=== PATIENT | male | born 1955 | race African-American/Black ===

== ENCOUNTER 2018-02-27 14:10 | Emergency (ER) | payer SELFPAY ==
[~2018-02-27] VITALS: Ht 177.8 cm; Wt 85.0 kg
[2018-02-27] MEDS ORDERED: TAMS-11 PO (14:16)
[2018-02-27 16:28] LABS: BASOPHILS % 0.3 % (0.0-2.0); EOSINOPHILS % 1.1 % (0.0-5.0); HEMATOCRIT. 38.5 % (42.0-52.0); HEMOGLOBIN. 12.5 g/dL (14.0-18.0); LYMPHOCYTES % 20.6 % (20.0-50.0); MEAN CORPUSCULAR HEMOGLOBIN 22.8 pg (28.0-32.0); MEAN CORPUSCULAR VOLUME 70.2 fL (80.0-94.0); MEAN PLATELET VOLUME 8.1 fl (7.4-10.4); MONOCYTES % 6.2 % (2.0-8.0); NEUTROPHILS % 71.8 % (40.0-76.0); PLATELET 272 x1000/uL (130-400); RED BLOOD CELL COUNT 5.49 mill/uL (4.7-6.1); RED CELL DISTRIBUTION WIDTH 17.4 % (11.6-14.6)
[2018-02-27 16:32] LABS: CHLORIDE 105 mEq/L (98-107)
[2018-02-27 16:33] LABS: INR 1.1; PROTHROMBIN TIME 10.6 sec (9.1-11.1)
[2018-02-27 17:50] VITALS: BP 128/77
== END 2018-02-27 17:50 | disposition home or self-care (01) ==
LOC: ER 14:27
DX: R55 Syncope and collapse (principal)
CPT/HCPCS: 36415; 71045; 80053; 84484; 85025; 85610; 93005; 99285